=== PATIENT | male | born 1995 | race Caucasian/White ===

== ENCOUNTER → 2021-03-19 | Outpatient (CLI) | payer OTHER ==
[~2021-03-19] MED LIST: PROHANCE 279.3MG/ML 15ML VIAL As Ordered ONE; PROHANCE 279.3MG/ML 5ML VIAL As Ordered ONE
--- NOTE | 2021-03-20 00:07 | REPVR ---
PROCEDURE INFORMATION: Exam: MR Head Without and With Contrast; Internal Auditory Canals Exam date and time: 03/19/2021 11:55 AM Age: 25 years old Clinical indication: Dizziness; Additional info: Dizziness and giddiness TECHNIQUE: Imaging protocol: MR of the head without and with intravenous contrast. Exam focused on the internal auditory canals. Contrast material: PROHANCE; Contrast volume: 16 ml; Contrast route: INTRAVENOUS (IV); COMPARISON: No relevant prior studies available. FINDINGS: Brain: There is focal thinning of the body of the corpus callosum. Artifact limits the diffusion sequence. Aside from the areas of artifact, there is no definitive restricted diffusion suggestive of an acute infarct. There are scattered foci of FLAIR hyperintensity within the cerebral white matter. There is no mass effect or restricted diffusion associated with these foci. This white matter disease is nonspecific as to etiology. Possible etiologies include chronic small vessel ischemic disease, foci of demyelination, post-traumatic change, and migraine headaches, as well as additional infectious, inflammatory and autoimmune etiologies. No cerebral edema. A few tiny incidental pineal cysts are visualized, which are hyperintense on T2. Ventricles: No ventriculomegaly. Sinuses: The paranasal sinuses are well aerated, without air-fluid levels. Mastoid air cells: Mild effusions within right mastoid air cells, consistent with mastoiditis in the absence of trauma. Internal auditory canals: There is no mass effect or pathological enhancement involving the bilateral internal auditory canals or cerebellopontine angle cisterns. The visualized portions of the proximal fifth, seventh, and eighth cranial nerves are unremarkable. Nasopharynx: Small cysts are identified within the posterior nasopharynx. Bones/joints: Unremarkable. IMPRESSION: 1. No definitive acute infarct, although limited by artifact. 2. There are scattered foci of FLAIR hyperintensity within the cerebral white matter. This white matter disease is nonspecific as to etiology, as detailed above. 3. Mild effusions within right mastoid air cells, consistent with mastoiditis in the absence of trauma. 4. There is no mass effect or pathological enhancement involving the bilateral internal auditory canals or cerebellopontine angle cisterns. 5. Additional findings described above. Electronically signed by: Rustam Orellana On 03/20/2021 00:06:57 AM
== END ==
LOC: M RAD 10:47
PROVIDERS: ATTEND Otolaryngology
DX: R42 Dizziness and giddiness (principal)